=== PATIENT | female | born 1980 | race Caucasian/White ===

== ENCOUNTER 2024-12-03 19:56 | Emergency (ER) | payer BC, SELFPAY ==
[2024-12-03 20:26] LABS: Hematocrit 40.3 % (37.0-47.0); Hemoglobin 13.5 g/dL (12.0-16.0); Mean Corp Hgb Conc. 33.5 g/dL (33.0-37.0); Mean Corpuscular Volume 87.4 fL (81.0-99.0); Nucleated Red Blood Cells % 0 %; Platelet Count 316 10^3/uL (130-400); Red Cell Dist. Width 13.0 % (11.5-14.5)
[2024-12-03 20:50] LABS: HCG, Serum Qualitative Screen Negative
[2024-12-03 21:08] LABS: Blood Urea Nitrogen 12 mg/dl (7-17); Calcium 10.0 mg/dl (8.4-10.2); Carbon Dioxide 22 mmol/L (22-30); Chloride 106 mmol/L (98-107); Glucose 149 mg/dl (70-99); Potassium 4.1 mmol/L (3.5-5.1); Sodium 137 mmol/L (135-145); eGFR > 60.00
[2024-12-03 22:09] VITALS: BP 124/68
[2024-12-03 22:22] VITALS: BMI 26.0
--- NOTE | 2024-12-03 23:19 | ED.GENMED ---
History of Present Illness
General
Chief Complaint: Numbness
Source: patient
Exam Limitations: none
Time Seen by Provider: 12/03/24 22:25
Nursing documentation reviewed up to this point in time: agreed with
History of Present Illness
History of Present Illness:
44-year-old female who presents with history of numbness in her arms and legs, alongside dizziness and a general feeling of weakness. She reports that these symptoms began after undergoing a tooth implant earlier today that required intravenous
anesthesia. She felt fine immediately after the procedure, just tired and went home and slept until 1 p.m.. When she woke, she felt her knee were swollen and numb and she had difficulty ambulating. Knees didn't appear swollen but felt swollen.
Symptoms in legs dissipated and are no longer there but when that resolved she felt numbness later developed in the arms, predominantly affecting the forearms and elbows, and eventually extending to the fingers and up the arm only on the right upper
extremity.
She feels generally fatigued. This was the first time she ever had anesthesia. She denies any pain, vomiting.
Past History
Past History
ED Past Medical History: None
ED Past Surgical History: Other (Dental implant with anesthesia 12/03/2024)
Review of Systems
Review of Systems
Allergies reviewed?: Yes
All Other Systems: ROS reviewed and negative except as documented in HPI and ROS
Constitutional: Reports fatigue; Denies fever
EENT: Denies sore throat
Respiratory: Denies trouble breathing
Cardiac: Denies chest pain
ABD/GI: Denies abdominal pain or nausea
: Denies dysuria or incontinence
Musculoskeletal: Denies neck pain or back pain
Skin: Reports no symptoms
Neurological: Reports numbness (As described in HPI); Denies headache
Phy Exam
Physical Exam
Physical Exam:
GENERAL: No acute distress. A&Ox3.
CONSTITUTIONAL: Afebrile.
EYES: clear, conjunctivae normal, sharp optic disc, sharp retinal vessels. PERRL
ENMT: moist mucus membranes, Pharynx nl
RESPIRATORY: Regular respirations, nonlabored, lungs clear.
CARDIOVASCULAR: Regular rate and rhythm, no murmurs, no rubs.
GI: Soft, nontender, normal BS
MUSCULOSKELETAL: Moves with ease. Well perfused.
SKIN: Warm, dry, pink
PSYCH: Normal mood and affect. Well kept, interactive and appropriate
NEUROLOGIC: Awake, alert and oriented. No focal neurological deficits. Patellar reflex 2/4, brachial reflex 2/4, sensation intact and equal all extremities. Strength equal throughout. Patient ambulates well with steady gait. [id number]
intact. Heel-to-toe walking intact.
Course
Orders/Labs/Results
Orders:
Orders
12/03/24 20:01
EKG [Electrocardiogram (*1)] Urgent
Reason for Study: Fatigue / Weakness
Other Reason for Exam: numbness
12/03/24 20:02
EKG- Treatment ONCE
Test Result ONCE
12/03/24 20:12
Basic Metabolic Panel Urgent
Complete Blood Count/With Diff Urgent
HCG, Serum Qualitative Screen Urgent
Abnormal Lab Results
12/03/24
20:12
MPV 10.5 H fL
(7.4-10.4)
Absolute Neuts (auto) 8.6 H 10^3/uL
(1.4-6.5)
Absolute Lymphs (auto) 0.9 L 10^3/uL
(1.2-3.4)
Neutrophils % 87.0 H %
(42.2-75.2)
Lymphocytes % 9.2 L %
(20.5-51.1)
Glucose 149 H mg/dl
(70-99)
12/03/24 20:12
12/03/24 20:12
Vital Signs
Initial and Last Documented VS:
Initial Vital Signs
Temp Pulse Resp Pulse Ox
98.8 F 85 16 99
12/03/24 19:58 12/03/24 19:58 12/03/24 19:58 12/03/24 19:58
Last Documented Vital Signs
Temp Pulse Resp BP Pulse Ox
98.8 F 77 20 111/76 98
12/03/24 19:58 12/03/24 23:46 12/03/24 23:46 12/03/24 23:46 12/03/24 23:21
Clinical Operations Specialist consulted with Physician
Clinical Operations Specialist consulted with physician?: Yes
Name of Physician Consulted: Steven
MDM/Problems Addressed
Differential Diagnosis Includes:
post anesthetic neuropathy
electrolyte imbalance, dehydration
MDM/Problems Addressed:
44-year-old female who presents with history of numbness in her arms and legs, alongside dizziness and a general feeling of weakness. She reports that these symptoms began after undergoing a tooth implant earlier today that required intravenous
anesthesia. She felt fine immediately after the procedure, just tired and went home and slept until 1 p.m.. When she woke, she felt her knee were swollen and numb and she had difficulty ambulating. Knees didn't appear swollen but felt swollen.
Symptoms in legs dissipated and are no longer there but when that resolved she felt numbness later developed in the arms, predominantly affecting the forearms and elbows, and eventually extending to the fingers and up the arm only on the right upper
extremity.
She feels generally fatigued. This was the first time she ever had anesthesia. She denies any pain, vomiting.
No sign or symptom of Guillain-Alvarez�
CBC, CMP normal hCG negative
EKG NSR
Patient neuro work-up is normal. Symptoms are improving. This is most likely side effect from her anesthesia. She is comfortable going home.
Discussed case with Dr. Harris who agrees with assessment
*Pulse Oximetry
SaO2: 98
Oxygen Mode of Delivery: Room air
Patient hypoxic: no
*EKG
EKG Intrepretation Date: 12/03/24
Interpretation: normal
Heart Rate: 84
Rate: normal
Rhythm: sinus
[place]: normal axis
Interval: normal interval
QRS Pattern: normal QRS
*Critical Care Note
Total Time (30-74mins, 75-104mins- exclusive of procedures): Not Applicable
ED Attending Note
-
Portions of this chart may have been created with voice recognition software.� Occasional wrong word or��sound alike� substitutions may have occurred due to the inherent limitations of voice recognition software.
Discharge Plan
Departure
Patient Disposition: Home (Routine Discharge)
Date of Disposition: 12/03/24
Time of Disposition: 23:34
Patient with high blood pressure during this ER visit?: No
Condition: Good
Discharge Problem:
Paresthesias
Instructions: Paresthesia (DC)
Prescriptions:
No Action
Vitamin Tablet
1 tab PO DAILY
acetaminophen 325 MG tablet
650 mg PO Q4HPRN PRN (Reason: mild pain) 0RF
Referrals:
Tracy Zamora MD [Family Provider, Internal Medicine] - As needed
Activity Restrictions/Additional Instructions:
As we discussed, these paresthesias you are feeling are most likely side effects of the anesthesia
Drink plenty of fluids
If you are not 100% improved by Friday see your family doctor for recheck.
Return here immediately for worsening symptoms or anything that turns you.
Interventions
Interventions:
*Risk Screen - Suicide Last Done: 12/03/24 19:58
*General Assessment Last Done: 12/03/24 19:58
*Neglect/Abuse Screening Last Done: 12/03/24 19:58
*ED- Fall Risk Assessment Last Done: 12/03/24 22:19
*ED COVID-19 Vaccine History Last Done: 12/03/24 22:19
*Nursing Disposition Last Done: 12/03/24 23:45
ED- Neurological Assessment Last Done: 12/03/24 23:47
Discharge Date and Time
Discharge Date/Time: 12/03/24 23:45
Print Language: [place]
[2024-12-03 23:46] VITALS: BP 111/76
== END 2024-12-03 23:45 | disposition home or self-care (01) ==
LOC: EMR 19:56
PROVIDERS: Emergency Medicine; EMERGENCY PHYSICIAN Student in an Organized Health Care Education/Training Program; FAMILY PHYSICIAN Internal Medicine
DX: R20.2 Paresthesia of skin (principal)
CPT/HCPCS: 99284; 80048; 84703; 85025; 93005